=== PATIENT | male | born 1980 | race Caucasian/White ===

== ENCOUNTER 2022-07-19 01:44 | Emergency (ER) | payer MEDICAID, SELFPAY ==
[2022-07-19 01:46] VITALS: BP 125/75; PULSE 106; RESP 22; TEMP 36.3; O2SAT 99; BMI 23.1
--- NOTE | 2022-07-19 02:08 | W.ED.GENADLT ---
HPI - General Adult General: Chief complaint: General Medical Stated complaint: HURTS TO PEE Time Seen by Provider: 07/19/22 01:51 Source: patient History of Present Illness: 42-year-old male evidently with no prior history of urinary problems presents with the inability to urinate. He has been able to go only small amounts of most of the day he says. He screams in pain when trying to urinate. He is holding his belly. He notes his pain is in the lower abdomen and across his back. He has no testicular or penile pain, blood in the urine, or discharge. Onset (ago): hour(s) Location: abdomen and pelvis Radiation: back Severity: severe Quality: burning, stabbing and aching Pain Consistency: constant Relieving factors: none Exacerbating factors: other (Urination) Associated symptoms: Reports diaphoresis; Deny chest pain, dyspnea, fevers/chills, rash or vomiting Review of Systems Const: Reports: diaphoresis; Denies: fever(s) Card: Denies: chest pain Resp: Denies: dyspnea GI: Reports: abdominal pain; Denies: vomiting : Reports: difficulty urinating, dysuria, difficulty starting urination and oliguria Musc: Reports: back pain Skin/Breast: Denies: rash Physical Exam HENMT: COMMON NORMALS: normocephalic and atraumatic HEAD & SCALP: normocephalic and atraumatic Eye: COMMON NORMALS: Equal, round and reactive pupils present and EOMs intact bilaterally PUPIL: Yes Equal, round and reactive pupils present Neck/C-Spine: GENERAL: Yes trachea midline Chest: CHEST: Yes Symmetrical chest wall rise Resp: COMMON NORMALS: normal respiratory effort, No use of accessory muscles and clear to auscultation bilaterally AUSCULTATION: clear to auscultation bilaterally Cardio: COMMON NORMALS: regular rhythm RATE: tachycardic RHYTHM: regular rhythm GI: INSPECTION: Yes normal to inspection PALPATION: Yes Tenderness to palpation present (GI) (Suprapubic) : BLADDER/KIDNEY EXAM: Yes CVA tenderness Back/Pelvis: GENERAL BACK: Yes CVA tenderness CVA tenderness: bilateral Extremity: COMMON NORMALS: no pedal edema Neuro: SHAGGY COMA SCALE: document GCS findings [place] coma scale eye opening: Spontaneous [place] coma scale verbal response: Orientated [place] coma scale motor response: Obey commands Shaggy coma scale total score: 15 SPEECH: speech normal Psych: COMMON NORMALS: cooperative MOOD & AFFECT: Yes expansive affect Skin: NARRATIVE SKIN EXAM: Multiple skin szymanski in the forearms Course Vital Signs: Vital signs: Vital Signs Temperature 97.3 F L 07/19/22 01:46 Pulse Rate 106 H 07/19/22 01:46 Respiratory Rate 22 H 07/19/22 01:46 Blood Pressure 125/75 07/19/22 01:46 Pulse Oximetry 99 07/19/22 01:46 Oxygen Delivery Me thod 07/19/22 01:46 MDM - General Adult Medical Decision Making Patient appears to have needle tracks to the arm suspicious for amphetamine abuse. This could be a reason for urinary retention. Bladder scan is performed at the bedside and shows greater than 999 mL. IV is started, pain medication given. A Cardona will be inserted for decompression. Immediate output of 1000 mL post Cardona insertion. Patient feels much better. Pain is controlled. He will need to go home with a leg bag, to follow-up with PCP or urology in 48 to 72 hours. Lab Data Laboratory Results Urine Color Yellow (Yellow) 07/19/22 02:05 Urine Appearance Clear (CLEAR) 07/19/22 02:05 Urine pH 6 (5-7) 07/19/22 02:05 Ur Specific [place] 1.010 (1.005-1.030) 07/19/22 02:05 Urine Protein Neg (Negative) 07/19/22 02:05 Urine Glucose (UA) Norm (Normal) 07/19/22 02:05 Urine Ketones Negative (Negative) 07/19/22 02:05 Urine Blood 3+ (Negative) H 07/19/22 02:05 Urine Nitrate Negative (Negative) 07/19/22 02:05 Urine Bilirubin Neg (Negative) 07/19/22 02:05 Urine Urobilinogen Neg mg/dL (Negative) 07/19/22 02:05 Ur Leukocyte Esterase 2+ (Negative) H 07/19/22 02:05 Urine RBC 40-50 /hpf (0-2) H 07/19/22 02:05 Urine WBC 5-10 /hpf (0-5) H 07/19/22 02:05 Ur Squamous Epith Cells 0-4 /hpf (0-5) H 07/19/22 02:05 Amorphous Sediment Not Reportable 07/19/22 02:05 Urine Bacteria Trace /hpf (NONE) 07/19/22 02:05 Urine Opiates Screen Negative ng/mL (Negative) 07/19/22 02:05 Ur Barbiturates Screen Negative ng/mL (Negative) 07/19/22 02:05 Ur Phencyclidine Scrn Negative ng/mL (Negative) 07/19/22 02:05 Ur Amphetamines Screen Positive ng/mL (Negative) H 07/19/22 02:05 U Benzodiazepines Scrn Negative ng/mL (Negative) 07/19/22 02:05 Urine Cocaine Screen Negative ng/mL (Negative) 07/19/22 02:05 U Marijuana (THC) Screen Negative ng/mL (Negative) 07/19/22 02:05 Discharge Plan Discharge Patient Disposition: Home Clinical Impression: Acute urinary retention Condition: Stable Prescriptions: New Flomax 0.4 mg capsule 0.4 mg PO DAILY Qty: 30 0RF Discharge Orders: Discharge ED (Routine); Ordered 07/19/22 Ordered By: Castro Burrell Referrals: Kelly Silverman MD [Primary Care Provider] - 1-3 days Discharge Diet: Usual diet Discharge Activity: Increase activity as tolerated Patient Instructions: Urinary Retention in Men (ED), Cardona Catheter Placement and Care (ED) Activity Restrictions/Additional Instructions: See your doctor in 48 to 72 hours for catheter removal. Medication as directed, which should help your bladder release urine. Return for fever greater than 100, worsening pain, other concerning symptoms. Coding Level of Care Code ED Offshore Wind Turbine Technician for Jarocho Orlando
[2022-07-19] MEDS: HYDROmorphone 1 mg/mL INJ 1 mL IVP (02:17)
[2022-07-19] MEDS: haloperidol inj 5 mg/mL INJ 1 mL IVP (02:17)
--- NOTE | 2022-07-19 02:20 | PC.NURSE ---
0205- bladder scan done per Dr. Burrell showing amount >999. Provider notified and will place anton catheter. 0208- 16 fr anton placed with immediate urine return . 950 ml of urine returned @ 0209. Anton clamped and provider notified. WIll unclamp in 1 hour for full draining of bladder.
[2022-07-19 02:30] LABS: Add Urine Microscopic? YES; Bilirubin Urine Neg (Negative); Blood Urine 3+ (Negative); Glucose Urine UA Norm (Normal); Ketones Urine Negative (Negative); Leukocyte Esterase Urine 2+ (Negative); Nitrate Urine Negative (Negative); Protein Urine Neg (Negative); Urine Appearance Clear (CLEAR); Urine Color Yellow (Yellow); Urobilinogen Urine Neg (Negative); pH Urine 6 (5-7)
[2022-07-19 02:32] LABS: Add Urine Culture? Yes; Bacteria Urine TRACE /hpf; RBC Urine 40-50 /hpf (0-2); Squamous Epithelial Cell Urine 0-4 /hpf (0-5)
[2022-07-19 02:35] LABS: Amphetamines Screen Urine Positive (Negative); Barbiturates Screen Urine Negative (Negative); Benzodiazepines Screen Urine Negative (Negative); Cocaine Screen Urine Negative (Negative); Opiate Screen Urine Negative (Negative); PCP Screen Urine Negative (Negative); THC Screen Urine Negative (Negative)
== END 2022-07-19 03:01 | disposition home or self-care (01) ==
PROVIDERS: Emergency Provider Emergency Medicine; PCP Internal Medicine
DX: R33.9 Retention of urine, unspecified (principal)
CPT/HCPCS: 51702; 51798; 80306; 81001; 87077; 87086; 87186; 87491; 87591; 96374; 96375; 99284; J1170; J1630

== ENCOUNTER 2023-08-14 16:12 | Emergency (ER) | payer MEDICAID, SELFPAY ==
[2023-08-14 16:16] VITALS: BP 173/104; PULSE 104; RESP 16; TEMP 36.7; O2SAT 96
--- NOTE | 2023-08-14 16:18 | ECG_ITS ---
[facility] Test Date: 2023-08-14 Pat Name: Marty Ignacio Department: Room: Gender: Male Research Editor: : 1980 Requested By: Johan Almanza Order Number: [id number] Angel MD: Dudley Amor M.D. Measurements Intervals [place] Rate: 98 P: 63 IN: 183 QRS: 69 QRSD: 86 T: 66 QT: 323 QTc: 413 Interpretive Statements SINUS RHYTHM No previous ECG available for comparison Electronically Signed On 08-15-2023 22:53:54 CDT by Dudley Amor M.D. [id number]
--- NOTE | 2023-08-14 16:18 | W.ED.GENADLT ---
HPI - General Adult General: Chief complaint: Altered Mental Status Stated complaint: AMS Time Seen by Provider: 08/14/23 16:14 Source: patient Mode of arrival: ambulatory History of Present Illness: 43-year-old male presents emergency room with an episode of altered mental status. 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 EMS was called on arrival here he is awake and responsive he seems as if he is under the influence although he denies using any alcohol or drugs today. He states he has had similar episodes in the past and he has a history of seizures as well but he has not had any seizures for several years she is not on any medications for seizures. Onset (ago): minute(s) Associated symptoms: Deny dyspnea or headache(s) Review of Systems Const: Denies: chills Resp: Denies: dyspnea GI: Denies: abdominal pain : Denies: dysuria Musc: Denies: neck pain or back pain Skin/Breast: Denies: pruritus Neuro: Denies: headache(s) Physical Exam Const: COMMON NORMALS: no acute distress GENERAL APPEARANCE: cooperative and comfortable ORIENTATION/CONSCIOUSNESS: Yes awake, Yes oriented to person, Yes oriented to place and Yes oriented to time HENMT: COMMON NORMALS: normocephalic, atraumatic and hearing grossly normal bilaterally HEAD & SCALP: normocephalic and atraumatic Resp: COMMON NORMALS: normal respiratory effort, No retractions, No use of accessory muscles and clear to auscultation bilaterally AUSCULTATION: clear to auscultation bilaterally Cardio: COMMON NORMALS: regular rate, regular rhythm and No murmurs present (Cardio) RATE: regular rate RHYTHM: regular rhythm GI: COMMON NORMALS: Soft to palpation and No hepatosplenomegaly present AUSCULTATION: Yes normoactive bowel sounds PALPATION: Yes Soft to palpation, No Tenderness to palpation present (GI), No Guarding due to palpation present (GI) and Yes No hepatosplenomegaly present Extremity: COMMON NORMALS: normal to inspection, capillary refill normal, no clubbing, cyanosis or edema, no calf tenderness and no pedal edema Neuro: SENSORIUM/ORIENTATION: Yes oriented to person, Yes oriented to place and Yes oriented to time Skin: COMMON NORMALS: no rashes or lesions noted GENERAL SKIN EXAM: no rashes or lesions noted Course Vital Signs: Vital signs: Vital Signs Temperature 98.0 F 08/14/23 16:16 Pulse Rate 90 08/14/23 19:02 Respiratory Rate 14 08/14/23 19:02 Blood Pressure 138/72 08/14/23 19:02 Pulse Oximetry 96 08/14/23 19:02 Oxygen Delivery Me thod Room Air 08/14/23 16:50 MDM - General Adult Medical Decision Making Patient awake alert and interactive when he arrives here. Initially he does appear to be under the influence, he denies use of any drugs or alcohol. He states he has had these episodes in the past. UA positive for methamphetamines. Otherwise remainder of his UA is unremarkable. Patient increasingly jittery after arrival here suspect he has an chested or injected more methamphetamines since arriving. Discharged home suspect his episode today was related to the methamphetamine use patient admits he has had this in the past as well. Medical Records I reviewed the patient's medical records. Lab Data I reviewed the patient's lab results. 08/14/23 16:26 08/14/23 16:26 Laboratory Results WBC 10.33 10^3/uL (3.29-11.43) 08/14/23 16:26 RBC 4.63 10^6/uL (3.85-5.65) 08/14/23 16:26 Hgb 13.60 g/dL (11.27-16.99) 08/14/23 16:26 Hct 41.0 % (37-53) 08/14/23 16:26 MCV 88.6 fl (82-101) 08/14/23 16:26 MCH 29.4 pg (27-33) 08/14/23 16:26 MCHC 33.2 g/dL (30-55) 08/14/23 16:26 RDW 13.1 % (12.1-15.1) 08/14/23 16:26 Plt Count 227 10^3/cmm (157-399) 08/14/23 16:26 MPV 9.5 fL (7.4-10.4) 08/14/23 16:26 Neut % (Auto) 54.4 % 08/14/23 16:26 Lymph % (Auto) 34.9 % 08/14/23 16:26 [place] % (Auto) 8.4 % 08/14/23 16:26 Eos % (Auto) 1.3 % 08/14/23 16:26 Baso % (Auto) 0.8 % 08/14/23 16: Neut # (Auto) 5.62 10^3/uL (1.8-7.7) 08/14/23 16: Lymph # (Auto) 3.6 10^3/uL (0.8-4.8) 08/14/23 16:26 [place] # (Auto) 0.9 10^3/uL (0.2-0.9) 08/14/23 16:26 Eos # (Auto) 0.1 10^3/uL (0.0-0.8) 08/14/23 16: Baso # (Auto) 0.1 10^3/uL (0.0-0.1) 08/14/23 16:26 Nucleated RBC % (auto) 0 % 08/14/23 16: Nucleated RBCs # 0.0 /100WBC 08/14/23 16:26 Sodium 138 mmol/L (136-145) 08/14/23 16:26 Potassium 3.9 mmol/L (3.5-5.1) 08/14/23 16:26 Chloride 100 mmol/L (98-107) 08/14/23 16:26 Carbon Dioxide 26 mmol/L (22-29) 08/14/23 16:26 Anion Gap 15.9 (5-19) 08/14/23 16:26 BUN 18 mg/dL (6-20) 08/14/23 16:26 Creatinine 1.2 mg/dL (0.7-1.2) 08/14/23 16:26 GFR Calculation 66.1 mL/min (90-130) L 08/14/23 16:26 Glucose 87 mg/dL (65-115) 08/14/23 16:26 Calculated Osmolality 287 mOsm/kg (285-295) 08/14/23 16:26 Lactic Acid 1.0 mmol/L (0.5-2.2) 08/14/23 16:26 Calcium 9.0 mg/dL (8.5-10.5) 08/14/23 16:26 Total Bilirubin 0.6 mg/dL (0.15-1.2) 08/14/23 16:26 AST 80 U/L (0-40) H 08/14/23 16:26 ALT 85 U/L (0-41) H 08/14/23 16:26 Alkaline Phosphatase 72 U/L (40-130) 08/14/23 16:26 Total Protein 7.6 g/dL (6.6-8.7) 08/14/23 16:26 Albumin 4.5 g/dL (3.5-5.2) 08/14/23 16:26 Globulin 3.1 g/dL (1.3-4.6) 08/14/23 16:26 Urine Color Yellow (Yellow) 08/14/23 18:14 Urine Appearance Clear (CLEAR) 08/14/23 18:14 Urine pH 5 (5-7) 08/14/23 18:14 Ur Specific [place] 1.025 (1.005-1.030) 08/14/23 18:14 Urine Protein Trace (Negative) 08/14/23 18:14 Urine Glucose (UA) Norm (Normal) 08/14/23 18:14 Urine Ketones 1+ (Negative) H 08/14/23 18:14 Urine Blood 3+ (Negative) H 08/14/23 18:14 Urine Nitrate Negative (Negative) 08/14/23 18:14 Urine Bilirubin Neg (Negative) 08/14/23 18:14 Urine Urobilinogen Neg mg/dL (Negative) 08/14/23 18:14 Ur Leukocyte Esterase Negative (Negative) 08/14/23 18:14 Urine RBC 0-4 /hpf (0-2) H 08/14/23 18:14 Urine WBC None /hpf (0-5) 08/14/23 18:14 Ur Squamous Epith Cells 0-4 /hpf (0-5) H 08/14/23 18:14 Amorphous Sediment Not Reportable 08/14/23 18:14 Urine Bacteria None /hpf (NONE) 08/14/23 18:14 Urine Mucus 2+ /hpf 08/14/23 18:14 Urine Opiates Screen Negative ng/mL (Negative) 08/14/23 18:14 Ur Barbiturates Screen Negative ng/mL (Negative) 08/14/23 18:14 Ur Phencyclidine Scrn Negative ng/mL (Negative) 08/14/23 18:14 Ur Amphetamines Screen Positive ng/mL (Negative) H 08/14/23 18:14 U Benzodiazepines Scrn Negative ng/mL (Negative) 08/14/23 18:14 Urine Cocaine Screen Negative ng/mL (Negative) 08/14/23 18:14 U Marijuana (THC) Screen Negative ng/mL (Negative) 08/14/23 18:14 Ethyl Alcohol < 10 mg/dL (0-10) 08/14/23 16:26 No radiology studies performed this visit Discharge Plan Discharge Patient Disposition: Home Clinical Impression: Syncope and collapse Condition: Stable Prescriptions: No Action Flomax 0.4 mg capsule 0.4 mg PO DAILY Qty: 30 0RF Discharge Orders: Discharge ED (Routine); Ordered 08/14/23 Ordered By: Johan Rivera Referrals: Kelly Silverman MD [Primary Care Provider] - Discharge Diet: Usual diet Discharge Activity: Increase activity as tolerated Patient Instructions: Opioid Safety, Pain Management Activity Restrictions/Additional Instructions: Follow-up with your primary care doctor as needed. Coding Level of Care Code ED Correctional Treatment Specialist for Jarocho Orlando
[2023-08-14 16:41] LABS: Basophils # 0.1 10^3/uL (0.0-0.1); Basophils % 0.8 %; Eosinophils # 0.1 10^3/uL (0.0-0.8); Eosinophils % 1.3 %; Lymphocytes # 3.6 10^3/uL (0.8-4.8); Lymphocytes % 34.9 %; Mean Corpuscular HGB Conc 33.2 g/dL (30-55); Mean Corpuscular Hemoglobin 29.4 pg (27-33); Mean Corpuscular Volume 88.6 fl (82-101); Mean Platelet Volume 9.5 fL (7.4-10.4); Monocytes # 0.9 10^3/uL (0.2-0.9); Monocytes % 8.4 %; Neutrophils # 5.62 10^3/uL (1.8-7.7); Neutrophils % 54.4 %; Nucleated Red Blood Cells % 0 %; Platelet Count 227 10^3/cmm (157-399); Red Blood Count 4.63 10^6/uL (3.85-5.65); Red Cell Distribution Width 13.1 % (12.1-15.1); White Blood Count 10.33 10^3/uL (3.29-11.43)
[2023-08-14 16:48] VITALS: BP 128/80; PULSE 105; RESP 15; O2SAT 95
[2023-08-14 16:50] VITALS: BP 132/88; PULSE 101; RESP 17; O2SAT 98; O2SAT 99
[2023-08-14 16:54] LABS: Alanine Aminotransferase 85 U/L (0-41); Albumin Level 4.5 g/dL (3.5-5.2); Alkaline Phosphatase 72 U/L (40-130); Anion Gap 15.9 (5-19); Aspartate Amino Transferase 80 U/L (0-40); Blood Urea Nitrogen 18 mg/dL (6-20); Carbon Dioxide 26 mmol/L (22-29); Chloride 100 mmol/L (98-107); Creatinine Clr Calc Pharmacy 90.4871; Globulin 3.1 g/dL (1.3-4.6); Glomerular Filtration Rate 66.1 mL/min (90-130); Glucose 87 mg/dL (65-115); Osmolality Calculated 287 mOsm/kg (285-295); Potassium 3.9 mmol/L (3.5-5.1); Sodium 138 mmol/L (136-145); Total Bilirubin 0.6 mg/dL (0.15-1.2); Total Protein 7.6 g/dL (6.6-8.7)
[2023-08-14 17:02] LABS: Alcohol Level < 10 mg/dL (0-10)
[2023-08-14] MEDS: sodium chloride 0.9% 1,000 ML 999 ML IV (17:02)
[2023-08-14 18:10] VITALS: BP 134/79; PULSE 90; RESP 14; O2SAT 99
[2023-08-14 18:39] LABS: Amphetamines Screen Urine Positive (Negative); Barbiturates Screen Urine Negative (Negative); Benzodiazepines Screen Urine Negative (Negative); Cocaine Screen Urine Negative (Negative); Opiate Screen Urine Negative (Negative); PCP Screen Urine Negative (Negative); THC Screen Urine Negative (Negative)
[2023-08-14 19:00] VITALS: BP 138/72; PULSE 90; RESP 14; O2SAT 96
[2023-08-14 19:02] VITALS: BP 138/72; PULSE 90; RESP 14; O2SAT 96
[2023-08-14 19:03] LABS: Glucose Urine UA Norm (Normal); Ketones Urine 1+ (Negative); Protein Urine Trace (Negative); Specific Gravity, Urine 1.025 (1.005-1.030); Urine Appearance Clear (CLEAR); Urine Color Yellow (Yellow); pH Urine 5 (5-7)
[2023-08-14 19:04] LABS: Add Urine Culture? No; Add Urine Microscopic? YES; Bilirubin Urine Neg (Negative); Blood Urine 3+ (Negative); Leukocyte Esterase Urine Negative (Negative); Mucus Urine 2+ /hpf; Nitrate Urine Negative (Negative); RBC Urine 0-4 /hpf (0-2); Squamous Epithelial Cell Urine 0-4 /hpf (0-5); Urobilinogen Urine Neg (Negative)
== END 2023-08-14 19:03 | disposition home or self-care (01) ==
PROVIDERS: Emergency Provider Family Medicine; PCP Internal Medicine
DX: R55 Syncope and collapse (principal)
CPT/HCPCS: 36415; 80053; 80306; 80307; 81001; 83605; 85025; 93005; 96360; 99285; J7030

== ENCOUNTER 2024-02-24 06:48 | Emergency (ER) | payer MEDICAID, SELFPAY ==
[2024-02-24 06:52] VITALS: BP 140/83; PULSE 124; RESP 14; TEMP 36.8; O2SAT 99; BMI 26.4
--- NOTE | 2024-02-24 06:52 | XR_ITS ---
WS: [id number] Exam: XR chest 1V portable [id number] Date/Time of Exam: 02/24/2024 6:52 AM Reason For Exam: chest pain Comparison 07/26/2013. Lungs are clear. Normal cardiomediastinal silhouette and regional bony elements. No pleural effusions . Several scattered calcified granulomas. IMPRESSION: 1. Negative chest. No change.
--- NOTE | 2024-02-24 06:53 | ECG_ITS ---
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 Measurements Intervals [place] Rate: 92 P: 50 [place]: 175 QRS: 58 QRSD: 87 T: 52 QT: 340 QTc: 421 Interpretive Statements SINUS RHYTHM Compared to ECG 08/14/2023 16:18:34 No significant changes Electronically Signed On 02-24-2024 11:47:22 CDT by Dudley Amor M.D. [email or web address].[employer]/store/NU/[id number] f
--- NOTE | 2024-02-24 06:54 | ED_ITS ---
HPI - Chest Pain 2 General: Chief Complaint: Chest Pain Stated Complaint: chest pain Time Seen by Provider: 02/24/24 06:51 Source: patient Mode of arrival: ambulatory History of Present Illness: 43-year-old male presents with complaint of chest pain and lightheadedness began around 530 this morning. He also noted his blood pressure has been elevated. He is awake and alert answers questions he previously was on hydrochlorothiazide for his blood pressure but stopped it. No fever sweats or chills no dysuria urgency or frequency. MD complaint: chest pain Onset (ago): hour(s) Timing of current episode: episodic Onset: during rest Quality: tightness and heaviness Associated symptoms: Deny abdominal pain, dyspnea or fever(s) Review of Systems 2 Const: Denies: fever(s) or chills Card: Denies: chest pain Resp: Denies: dyspnea GI: Denies: abdominal pain : Denies: dysuria, urinary frequency or urinary urgency Musc: Denies: neck pain or back pain Skin/Breast: Denies: rash Physical Exam 2 Const: COMMON NORMALS: no acute distress GENERAL APPEARANCE: cooperative and comfortable ORIENTATION/CONSCIOUSNESS: Yes awake, Yes oriented to person, Yes oriented to place and Yes oriented to time HENMT: COMMON NORMALS: normocephalic, atraumatic and hearing grossly normal bilaterally HEAD & SCALP: normocephalic and atraumatic Resp: COMMON NORMALS: normal respiratory effort, No retractions, No use of accessory muscles and clear to auscultation bilaterally AUSCULTATION: clear to auscultation bilaterally Cardio: COMMON NORMALS: regular rate, regular rhythm and No murmurs present (Cardio) RATE: regular rate RHYTHM: regular rhythm GI: COMMON NORMALS: Soft to palpation and No hepatosplenomegaly present A USCULTATION: Yes normoactive bowel sounds PALPATION: Yes Soft to palpation, No Tenderness to palpation present (GI), No Guarding due to palpation present (GI) and Yes No hepatosplenomegaly present Extremity: COMMON NORMALS: normal to inspection, capillary refill normal, no clubbing, cyanosis or edema, no calf tenderness and no pedal edema Neuro: SENSORIUM/ORIENTATION: Yes oriented to person, Yes oriented to place and Yes oriented to time Skin: COMMON NORMALS: no rashes or lesions noted GENERAL SKIN EXAM: no rashes or lesions noted Course 2 Vital Signs: Vital signs: Vital Signs Temperature 98.2 F 02/24/24 10:11 Pulse Rate 62 02/24/24 10:11 Respiratory Rate 14 02/24/24 10:11 Blood Pressure 107/68 02/24/24 10:11 Pulse Oximetry 96 02/24/24 10:11 Oxygen Delivery Me thod Room Air 02/24/24 08:46 MDM - Chest Pain Medical Decision Making Labs and imaging reviewed EKG does not show any acute ST changes no ST elevation, normal sinus rhythm with a rate in the 90s. With normal NE and QT intervals on the first EKG. Second EKG showed sinus bradycardia but otherwise unremarkable no acute ST changes. . Troponins trending normal patient has had no further symptoms. Patient has been using a lot of NSAIDs with ibuprofen and Aleve. He avoids Tylenol because he has a history of hepatitis C. Asked him to cut back on the use of the NSAIDs. Start omeprazole 20 mg twice a day for 10 days then once a day. Increase fluid intake follow-up with outpatient graded exercise stress test. Medical Records I reviewed the patient's medical records. Lab Data I reviewed the patient's lab results. 02/24/24 07:16 02/24/24 07:16 Laboratory Results WBC 5.84 10^3/uL (3.29-11.43) 02/24/24 07:16 RBC 5.27 10^6/uL (3.85-5.65) 02/24/24 07:16 Hgb 16.10 g/dL (11.27-16.99) 02/24/24 07:16 Hct 47.5 % (37-53) 02/24/24 07:16 MCV 90.1 fl (82-101) 02/24/24 07:16 MCH 30.6 pg (27-33) 02/24/24 07:16 MCHC 33.9 g/dL (30-55) 02/24/24 07:16 RDW 13.2 % (12.1-15.1) 02/24/24 07:16 Plt Count 168 10^3/cmm (157-399) 02/24/24 07:16 MPV 10.6 fL (7.4-10.4) H 02/24/24 07:16 Neut % (Auto) 57.4 % 02/24/24 07:16 Lymph % (Auto) 29.8 % 02/24/24 07:16 [place] % (Auto) 8.9 % 02/24/24 07:16 Eos % (Auto) 2.7 % 02/24/24 07:16 Baso % (Auto) 0.9 % 02/24/24 07:16 Neut # (Auto) 3.35 10^3/uL (1.8-7.7) 02/24/24 07:16 Lymph # (Auto) 1.7 10^3/uL (0.8-4.8) 02/24/24 07:16 [place] # (Auto) 0.5 10^3/uL (0.2-0.9) 02/24/24 07:16 Eos # (Auto) 0.2 10^3/uL (0.0-0.8) 02/24/24 07:16 Baso # (Auto) 0.1 10^3/uL (0.0-0.1) 02/24/24 07:16 Nucleated RBC % (auto) 0 % 02/24/24 07:16 Nucleated RBCs # 0.0 /100WBC 02/24/24 07:16 Sodium 138 mmol/L (136-145) 02/24/24 07:16 Potassium 4.1 mmol/L (3.5-5.1) 02/24/24 07:16 Chloride 104 mmol/L (98-107) 02/24/24 07:16 Carbon Dioxide 25 mmol/L (22-29) 02/24/24 07:16 Anion Gap 13.1 (5-19) 02/24/24 07:16 BUN 12 mg/dL (6-20) 02/24/24 07:16 Creatinine 1.0 mg/dL (0.7-1.2) 02/24/24 07:16 GFR Calculation 81.6 mL/min (90-130) L 02/24/24 07:16 Glucose 142 mg/dL (65-115) H 02/24/24 07:16 POC Glucose 89 mg/dL (70-110) 02/24/24 09:58 Calculated Osmolality 288 mOsm/kg (285-295) 02/24/24 07:16 Calcium 9.1 mg/dL (8.5-10.5) 02/24/24 07:16 Total Bilirubin 0.5 mg/dL (0.15-1.2) 02/24/24 07:16 AST 88 U/L (0-40) H 02/24/24 07:16 ALT 137 U/L (0-41) H 02/24/24 07:16 Alkaline Phosphatase 69 U/L (40-130) 02/24/24 07:16 Troponin T Baseline 9 ng/L (0-15) 02/24/24 07:16 Troponin T 120 Minute 7.63 ng/L (0-15) 02/24/24 09:21 Delta Troponin T -1.37 ABS# (0-10) L 02/24/24 09:21 NT-Pro-B Natriuret Pep < 36 pg/mL (0-125) 02/24/24 07:16 Total Protein 7.2 g/dL (6.6-8.7) 02/24/24 07:16 Albumin 4.4 g/dL (3.5-5.2) 02/24/24 07:16 Globulin 2.8 g/dL (1.3-4.6) 02/24/24 07:16 Urine Opiates Screen Negative ng/mL (Negative) 02/24/24 08:04 Ur Barbiturates Screen Negative ng/mL (Negative) 02/24/24 08:04 Ur Phencyclidine Scrn Negative ng/mL (Negative) 02/24/24 08:04 Ur Amphetamines Screen Negative ng/mL (Negative) 02/24/24 08:04 U Benzodiazepines Scrn Negative ng/mL (Negative) 02/24/24 08:04 Urine Cocaine Screen Negative ng/mL (Negative) 02/24/24 08:04 U Marijuana (THC) Screen Negative ng/mL (Negative) 02/24/24 08:04 All radiology interpretation(s) finalized by discharge Discharge Plan Discharge Patient Disposition: Home Clinical Impression: Atypical chest pain Condition: Stable Prescriptions: New omeprazole 20 mg capsule,delayed release(DR/EC) 20 mg PO DAILY 42 Days Qty: 42 0RF Discontinued ibuprofen 200 mg Capsule 600 mg PO Q6H PRN (Reason: Pain) naproxen sodium [Aleve] 220 mg Capsule 220 mg PO BID PRN (Reason: Pain) Discharge Orders: Discharge ED (Routine); Ordered 02/24/24 Ordered By: Johan Rivera Referrals: Kelly Silverman MD [Primary Care Provider] - Discharge Diet: Usual diet Discharge Activity: Limit activity as instructed Patient Instructions: Opioid Safety, Pain Management Activity Restrictions/Additional Instructions: Thank you for choosing [facility] for your healthcare needs today. Please realize this is an emergency room and that we are providing you with a medical screening exam and this may not be complete and all inclusive of all the testing and or work up that you may need to determine your ailment or severity of your illness. It is very important that you follow up as instructed or that you return to the Emergency Department should you have concerns or if your condition changes or worsens in any way. You are seen today with complaint of chest pain cardiac enzymes and EKG did not show any acute changes. Recommend avoiding anti-inflammatories such as Aleve and ibuprofen. Start Prilosec 20 mg once daily [id number]. Case management will set up a stress test for you. Coding Level of Care Code ED Regulatory Product Manager for Jarocho Orlando
[2024-02-24] MEDS: aspirin 81 mg Chew Tablet 324 MG PO (07:07)
[2024-02-24 07:23] VITALS: BP 140/83; PULSE 72; O2SAT 96
[2024-02-24 07:31] LABS: Basophils # 0.1 10^3/uL (0.0-0.1); Basophils % 0.9 %; Eosinophils # 0.2 10^3/uL (0.0-0.8); Eosinophils % 2.7 %; Hematocrit 47.5 % (37-53); Lymphocytes # 1.7 10^3/uL (0.8-4.8); Lymphocytes % 29.8 %; Mean Corpuscular HGB Conc 33.9 g/dL (30-55); Mean Corpuscular Hemoglobin 30.6 pg (27-33); Mean Corpuscular Volume 90.1 fl (82-101); Mean Platelet Volume 10.6 fL (7.4-10.4); Monocytes # 0.5 10^3/uL (0.2-0.9); Monocytes % 8.9 %; Neutrophils # 3.35 10^3/uL (1.8-7.7); Neutrophils % 57.4 %; Nucleated Red Blood Cells % 0 %; Platelet Count 168 10^3/cmm (157-399); Red Blood Count 5.27 10^6/uL (3.85-5.65); Red Cell Distribution Width 13.2 % (12.1-15.1); White Blood Count 5.84 10^3/uL (3.29-11.43)
[2024-02-24 07:42] LABS: Troponin(5th) Baseline 9 ng/L (0-15)
[2024-02-24 07:49] LABS: Alanine Aminotransferase 137 U/L (0-41); Albumin Level 4.4 g/dL (3.5-5.2); Alkaline Phosphatase 69 U/L (40-130); Anion Gap 13.1 (5-19); Aspartate Amino Transferase 88 U/L (0-40); Blood Urea Nitrogen 12 mg/dL (6-20); Calcium 9.1 mg/dL (8.5-10.5); Carbon Dioxide 25 mmol/L (22-29); Chloride 104 mmol/L (98-107); Creatinine Clr Calc Pharmacy 113.4728; Globulin 2.8 g/dL (1.3-4.6); Glomerular Filtration Rate 81.6 mL/min (90-130); Glucose 142 mg/dL (65-115); NT Pro B Type Natriuretic Pept < 36 pg/mL (0-125); Osmolality Calculated 288 mOsm/kg (285-295); Potassium 4.1 mmol/L (3.5-5.1); Sodium 138 mmol/L (136-145); Total Bilirubin 0.5 mg/dL (0.15-1.2); Total Protein 7.2 g/dL (6.6-8.7)
[2024-02-24 08:36] LABS: Amphetamines Screen Urine Negative (Negative); Barbiturates Screen Urine Negative (Negative); Benzodiazepines Screen Urine Negative (Negative); Cocaine Screen Urine Negative (Negative); Opiate Screen Urine Negative (Negative); PCP Screen Urine Negative (Negative); THC Screen Urine Negative (Negative)
[2024-02-24 08:46] VITALS: BP 107/68; PULSE 77; O2SAT 96
--- NOTE | 2024-02-24 08:53 | ECG_ITS ---
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 Measurements Intervals [place] Rate: 59 P: 35 [place]: 176 QRS: 56 QRSD: 90 T: 52 QT: 386 QTc: 384 Interpretive Statements SINUS BRADYCARDIA Compared to ECG 02/24/2024 06:53:33 Sinus rhythm no longer present Electronically Signed On 02-24-2024 11:48:26 CDT by Dudley Amor M.D. [email or web address] at stone [email or web address] hardin memorial hospitalBox/store/OM/[id number]
[2024-02-24 09:51] LABS: Troponin 5 2HR 7.63 ng/L (0-15)
[2024-02-24 09:53] VITALS: BP 107/68; PULSE 74; O2SAT 95
[2024-02-24 09:55] VITALS: BP 107/68; PULSE 62; O2SAT 96
[2024-02-24 09:56] LABS: Troponin 5 2HR Delta -1.37 ABS# (0-10)
[2024-02-24 10:01] LABS: Glucose Point of Care 89 mg/dL (70-110)
[2024-02-24 10:11] VITALS: BP 107/68; PULSE 62; RESP 14; TEMP 36.8; O2SAT 96
--- NOTE | 2024-02-28 08:01 | DCPLANNER ---
outpatient order sent to Centralized scheduling
== END 2024-02-24 10:14 | disposition home or self-care (01) ==
PROVIDERS: Emergency Provider Family Medicine; PCP Internal Medicine
DX: R07.89 Other chest pain (principal)
CPT/HCPCS: 36416; 71045; 80053; 80306; 82962; 83880; 84484; 85025; 93005; 99285

== ENCOUNTER 2024-03-13 17:37 | Emergency (ER) | payer MEDICAID, SELFPAY ==
[2024-03-13 17:42] VITALS: BP 141/98; PULSE 108; RESP 18; TEMP 36.7; O2SAT 94; BMI 28.6
--- NOTE | 2024-03-13 17:49 | ED_ITS ---
Documented by User: Johan Rivera DO 03/14/24 06:14 HPI - Skin/Abscess/Foreign Bdy General: Chief complaint: Skin/Abscess/Foreign Body Stated complaint: hives Time Seen by Provider: 03/13/24 17:46 Source: patient Mode of arrival: ambulatory History of Present Illness: 43-year-old male presents emergency room complaining of itching swelling of the skin prickly of his arms also some swelling of his lower lip. He states began overnight he does not recall anything that was new or different that seem to precipitate it. He was seen in urgent care this morning and started on cetirizine and prednisone taper. He states that seem to gotten worse throughout the day he has not had any difficulty breathing or wheezing no vomiting or diarrhea no previous episodes like this. Onset (ago): hour(s) Location: face Severity: mild Relieving factors: none Exacerbating factors: none Associated symptoms: Deny arthralgias, chills, cough, fever(s), itching, myalgias, nausea, rigidity, short of breath or vomiting Treatments prior to arrival: other (Seen earlier today given antihistamines and oral steroid taper) Review of Systems Const: Denies: fever(s) or chills Card: Denies: chest pain Resp: Denies: dyspnea GI: Denies: nausea or vomiting : Denies: dysuria, urinary frequency or urinary urgency Musc: Denies: neck pain or back pain Skin/Breast: Denies: rash Physical Exam Const: GENERAL APPEARANCE: cooperative and comfortable ORIENTATION/CONSCIOUSNESS: Yes awake HENMT: COMMON NORMALS: atraumatic and hearing grossly normal bilaterally HEAD & SCALP: atraumatic Resp: COMMON NORMALS: normal respiratory effort, No retractions, No use of accessory muscles and clear to auscultation bilaterally AUSCULTATION: clear to auscultation bilaterally Cardio: COMMON NORMALS: regular rate, regular rhythm and No murmurs present (Cardio) RATE: regular rate RHYTHM: regular rhythm GI: COMMON NORMALS: Soft to palpation and No hepatosplenomegaly present AUSCULTATION: Yes normoactive bowel sounds PALPATION: Yes Soft to palpation, No Tenderness to palpation present (GI), No Guarding due to palpation present (GI) and Yes No hepatosplenomegaly present Extremity: COMMON NORMALS: normal to inspection, capillary refill normal, no clubbing, cyanosis or edema, no calf tenderness and no pedal edema Skin: OTHER: Excoriations on the arms bilaterally. There is significant swelling of the lower lip no posterior pharyngeal edema or tongue swelling. No stridor on exam Course Vital Signs: Vital signs: Vital Signs Temperature 98.0 F 03/13/24 17:42 Pulse Rate 108 H 03/13/24 17:42 Respiratory Rate 18 03/13/24 20:03 Blood Pressure 115/83 03/13/24 20:03 Pulse Oximetry 90 03/13/24 20:03 Oxygen Delivery Me thod Room Air 03/13/24 17:42 MDM - Skin/Abscess/Foreign Bdy Medicial Decision Making Care signed out to Dr. Cervantes at change of shift. See final notes for diagnosis and disposition. Discharge Plan Discharge Patient Disposition: Home Clinical Impression: Allergic reaction Condition: Stable Prescriptions: New dexamethasone 6 mg tablet 6 mg PO DAILY 5 Days Qty: 5 0RF No Action omeprazole 20 mg capsule,delayed release(DR/EC) 20 mg PO DAILY 42 Days Qty: 42 0RF Discharge Orders: Discharge ED (Routine); Ordered 03/13/24 Ordered By: Mayi Cervantes Referrals: Kelyl Silverman MD [Primary Care Provider] - 4-7 days () Patient Instructions: General Allergic Reaction (ED) Activity Restrictions/Additional Instructions: Thank you for choosing [facility] for your healthcare needs today. Please realize this is an emergency room and that we are providing you with a medical screening exam and this may not be complete and all inclusive of all the testing and or work up that you may need to determine your ailment or severity of your illness. You have been screened and evaluated and felt safe for discharge. Health conditions do change or evolve sometimes and as such it is important that you follow up with your Primary Doctor to be re checked, 3-5 days is a general good time frame for follow up. 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 Cervantes at change of shift. See final notes for diagnosis and disposition. Patient improving some home on steroids Assessment and plan: Allergic reaction - Discharged home - Discussed plan with patient. Answered any questions. - Evaluation and treatment of this problem were appropriate in the emergency setting. No radiology studies performed this visit Discharge Plan Discharge Patient Disposition: Home Clinical Impression: Allergic reaction Condition: Stable Prescriptions: New dexamethasone 6 mg tablet 6 mg PO DAILY 5 Days Qty: 5 0RF No Action omeprazole 20 mg capsule,delayed release(DR/EC) 20 mg PO DAILY 42 Days Qty: 42 0RF Discharge Orders: Discharge ED (Routine); Ordered 03/13/24 Ordered By: Mayi Cervantes Referrals: Kelly Silverman MD [Primary Care Provider] - 4-7 days () Patient Instructions: General Allergic Reaction (ED) Activity Restrictions/Additional Instructions: Thank you for choosing [facility] for your healthcare needs today. Please realize this is an emergency room and that we are providing you with a medical screening exam and this may not be complete and all inclusive of all the testing and or work up that you may need to determine your ailment or severity of your illness. You have been screened and evaluated and felt safe for discharge. Health conditions do change or evolve sometimes and as such it is important that you follow up with your Primary Doctor to be re checked, 3-5 days is a general good time frame for follow up. You are always welcome to return to the ED for re assessment if your symptoms are worsening or you have new concerns Coding Level of Care Code ED [employer] Process[employer] for Jarocho Orlando
[2024-03-13] MEDS: diphenhydrAMINE 50 mg/mL SDV 1mL IVP (18:16)
[2024-03-13] MEDS: methylPREDNISolone sod succ 125 mg/2 mL INJ IVP (18:16)
[2024-03-13 20:03] VITALS: BP 115/83; RESP 18; O2SAT 90
== END 2024-03-13 20:05 | disposition home or self-care (01) ==
PROVIDERS: Emergency Provider Emergency Medicine; PCP Internal Medicine
DX: T78.40XA Allergy, unspecified, initial encounter (principal); X58.XXXA Exposure to other specified factors, initial encounter
CPT/HCPCS: 96374; 96375; 99284; J1200; J2919

== ENCOUNTER → 2024-05-23 09:18 | Outpatient (BNVA) | payer MEDICAID, SELFPAY | PROVIDERS: PCP Internal Medicine | DX: M25.512 Pain in left shoulder (principal) | CPT/HCPCS: 73030 ==

== ENCOUNTER 2025-09-16 10:34 | Emergency (ER) | payer MEDICAID, SELFPAY ==
--- NOTE | 2025-09-16 10:34 | XRR_ITS ---
PROCEDURE INFORMATION: Exam: XR Chest Exam date and time: 09/16/2025 10:51 AM Age: 45 years old Clinical indication: Cough and dyspnea; Additional info: Dyspnea/cough TECHNIQUE: Imaging protocol: Radiologic exam of the chest. Views: 1 view. COMPARISON: CR XR chest 1V portable [id number] 02/24/2024 7:19 AM FINDINGS: Lungs: Calcified granulomas in the right upper lung zone. There is no evidence of focal pulmonary consolidation. Pleural spaces: Unremarkable. No pleural effusion. No pneumothorax. Heart/Mediastinum: Unremarkable. No cardiomegaly. Bones/joints: Mild degenerative disease of bilateral acromioclavicular joints. XR/XR chest 1V portable [id number] IMPRESSION: No acute cardiopulmonary process.
[2025-09-16 10:35] VITALS: BP 142/82; PULSE 106; RESP 16; TEMP 36.3; O2SAT 100; BMI 23.7
--- NOTE | 2025-09-16 10:40 | ECG_ITS ---
[facility] Test Date: 2025-09-16 Pat Name: Marty Ignacio Department: Room: Gender: Male Protective Service Specialist: : 1980 Requested By: Johan Almanza Order Number: [id number] Angel MD: Handy Moran M.D. Measurements Intervals [place] Rate: 107 P: 40 AL: 132 QRS: 64 QRSD: 90 T: 54 QT: 330 QTc: 440 Interpretive Statements SINUS TACHYCARDIA ABNORMAL RHYTHM ECG Compared to ECG 02/24/2024 09:17:52 Sinus bradycardia no longer present Electronically Signed On 09-16-2025 20:10:49 [employer]OGY MAKER by Handy Moran M.D. [email or web address]
--- NOTE | 2025-09-16 10:50 | ED_ITS ---
HPI - Dizziness 2 General: Chief Complaint: Dizziness Stated Complaint: dizzy Time Seen by Provider: 09/16/25 10:34 History of Present Illness: HPI Narrative: 45-year-old male presents emergency room complaining of lightheadedness dizziness. He fell a physical fall after he stood up while he was making a bed. Otherwise his symptoms are nonreproducible if he moves his head does not increase his symptoms. He was at [place] he denies any vomiting or diarrhea recently. No fever sweats or chills no cough shortness of breath denies chest pain or abdominal pain at this time. Associated symptoms: Denies chest pain or chills Related Data Previous Rx's ?Medication ?Instructions ?Recorded ibuprofen 800 mg tablet 800 mg PO Q8H PRN pain #30 t abs 05/23/24 Allergies Allergy/AdvReac Type Severity Reaction Status Date / Time doxycycline Allergy ALGY-Hives Verified 09/16/25 10:46 Review of Systems 2 Const: Denies: fever(s) or chills Card: Denies: chest pain Resp: Denies: dyspnea GI: Denies: abdominal pain : Denies: dysuria, urinary frequency or urinary urgency Musc: Denies: neck pain or back pain Skin/Breast: Denies: rash Neuro: Reports: dizziness PFSH ED 2 PFSH: Social History Smoking and tobacco/nicotine status: unknown if used tobacco/nicotine Physical Exam 2 Const: COMMON NORMALS: no acute distress GENERAL APPEARANCE: cooperative and comfortable ORIENTATION/CONSCIOUSNESS: Yes awake, Yes oriented to person, Yes oriented to place and Yes oriented to time HENMT: COMMON NORMALS: normocephalic, atraumatic and hearing grossly normal bilaterally HEAD & SCALP: normocephalic and atraumatic Resp: COMMON NORMALS: normal respiratory effort, No retractions, No use of accessory muscles and clear to auscultation bilaterally AUSCULTATION: clear to auscultation bilaterally Cardio: COMMON NORMALS: regular rate, regular rhythm and No murmurs present (Cardio) RATE: regular rate RHYTHM: regular rhythm GI: COMMON NORMALS: Soft to palpation and No hepatosplenomegaly present A USCULTATION: Yes normoactive bowel sounds PALPATION: Yes Soft to palpation, No Tenderness to palpation present (GI), No Guarding due to palpation present (GI) and Yes No hepatosplenomegaly present Extremity: COMMON NORMALS: normal to inspection, capillary refill normal, no clubbing, cyanosis or edema, no calf tenderness and no pedal edema Neuro: SENSORIUM/ORIENTATION: Yes oriented to person, Yes oriented to place and Yes oriented to time OTHER: NIH done when I first seen the patient is 0. Skin: COMMON NORMALS: no rashes or lesions noted GENERAL SKIN EXAM: no rashes or lesions noted Course 2 Vital Signs: Vital signs: Vital Signs Temperature 97.4 F L 09/16/25 10:35 Pulse Rate 95 09/16/25 12:26 Respiratory Rate 16 09/16/25 10:35 Blood Pressure 106/57 09/16/25 12:26 Pulse Oximetry 98 09/16/25 12:26 Oxygen Delivery Me thod Room Air 09/16/25 10:35 MDM - Dizziness Medical Decision Making Patient is mildly orthostatic. Remainder of his workup is negative is not having any further symptoms he declines IV fluids we will discharge him home encourage oral hydration follow-up with his primary care doctor. Lab Data I reviewed the patient's lab results. 09/16/25 10:58 09/16/25 10:58 Radiology Impressions Chest X-Ray 09/16/25 10:34 IMPRESSION: No acute cardiopulmonary process. Laboratory Results WBC 7.31 10^3/uL (3.29-11.43) 09/16/25 10:58 RBC 4.92 10^6/uL (3.85-5.65) 09/16/25 10:58 Hgb 14.50 g/dL (11.27-16.99) 09/16/25 10:58 Hct 43.7 % (37-53) 09/16/25 10:58 MCV 88.8 fl (82-101) 09/16/25 10:58 MCH 29.5 pg (27-33) 09/16/25 10:58 MCHC 33.2 g/dL (30-55) 09/16/25 10:58 RDW 14.5 % (12.1-15.1) 09/16/25 10:58 Plt Count 190 10^3/cmm (157-399) 09/16/25 10:58 MPV 10.1 fL (7.4-10.4) 09/16/25 10:58 Neut % (Auto) 66.8 % 09/16/25 10:58 Lymph % (Auto) 21.5 % 09/16/25 10:58 [place] % (Auto) 8.6 % 09/16/25 10:58 Eos % (Auto) 1.9 % 09/16/25 10:58 Baso % (Auto) 0.8 % 09/16/25 10:58 Neut # (Auto) 4.88 10^3/uL (1.8-7.7) 09/16/25 10:58 Lymph # (Auto) 1.6 10^3/uL (0.8-4.8) 09/16/25 10:58 [place] # (Auto) 0.6 10^3/uL (0.2-0.9) 09/16/25 10:58 Eos # (Auto) 0.1 10^3/uL (0.0-0.8) 09/16/25 10:58 Baso # (Auto) 0.1 10^3/uL (0.0-0.1) 09/16/25 10:58 Nucleated RBC % (auto) 0 % 09/16/25 10:58 Nucleated RBCs # 0.0 /100WBC 09/16/25 10:58 Sodium 138 mmol/L (136-145) 09/16/25 10:58 Potassium 4.3 mmol/L (3.5-5.1) 09/16/25 10:58 Chloride 104 mmol/L (98-107) 09/16/25 10:58 Carbon Dioxide 22 mmol/L (22-29) 09/16/25 10:58 Anion Gap 16.3 (5-19) 09/16/25 10:58 BUN 15 mg/dL (6-20) 09/16/25 10:58 Creatinine 0.6 mg/dL (0.7-1.2) L 09/16/25 10:58 GFR Calculation 145.7 mL/min (90-130) H 09/16/25 10:58 Glucose 119 mg/dL (65-115) H 09/16/25 10:58 Calculated Osmolality 288 mOsm/kg (285-295) 09/16/25 10:58 Calcium 9.2 mg/dL (8.5-10.5) 09/16/25 10:58 Total Bilirubin 0.4 mg/dL (0.15-1.2) 09/16/25 10:58 AST 137 U/L (0-40) H 09/16/25 10:58 ALT 169 U/L (0-41) H 09/16/25 10:58 Alkaline Phosphatase 130 U/L (40-130) 09/16/25 10:58 Troponin T Baseline < 6 ng/L (0-15) 09/16/25 10:58 Total Protein 7.4 g/dL (6.6-8.7) 09/16/25 10:58 Albumin 3.9 g/dL (3.5-5.2) 09/16/25 10:58 Globulin 3.5 g/dL (1.3-4.6) 09/16/25 10:58 Urine Color Yellow (Yellow) 09/16/25 10:48 Urine Appearance Cloudy (CLEAR) A 09/16/25 10:48 Urine pH 7.5 (5-7) 09/16/25 10:48 Ur Specific [place] 1.015 (1.005-1.030) 09/16/25 10:48 Urine Protein Negative (Negative) 09/16/25 10:48 Urine Glucose (UA) Negative (Normal) 09/16/25 10:48 Urine Ketones Negative (Negative) 09/16/25 10:48 Urine Blood Negative (Negative) 09/16/25 10:48 Urine Nitrate Negative (Negative) 09/16/25 10:48 Urine Bilirubin Negative (Negative) 09/16/25 10:48 Urine Urobilinogen 4.0 mg/dL (Negative) H 09/16/25 10:48 Ur Leukocyte Esterase Negative (Negative) 09/16/25 10:48 Urine RBC 0-2 /hpf (0-2) 09/16/25 10:48 Urine WBC 0-5 /hpf (0-5) 09/16/25 10:48 Ur Squamous Epith Cells 0-5 /hpf (0-5) 09/16/25 10:48 Amorphous Sediment Not Reportable 09/16/25 10:48 Urine Bacteria None seen /hpf (NONE) 09/16/25 10:48 Hyaline Casts 0-4 /lpf H 09/16/25 10:48 All radiology interpretation(s) finalized by discharge Discharge Plan Discharge Patient Disposition: Home Clinical Impression: Orthostatic hypotension Condition: Stable Prescriptions: No Action ibuprofen 800 mg tablet 800 mg PO Q8H PRN (Reason: pain) Qty: 30 0RF Discharge Orders: Discharge ED (Routine); Ordered 09/16/25 Ordered By: Johan Rivera Referrals: Kelly Silverman MD [Primary Care Provider, Internal Medicine] Discharge Diet: Usual diet Discharge Activity: Increase activity as tolerated Patient Instructions: Opioid Safety, Pain Management, Patient Portal & [place] Instructions Activity Restrictions/Additional Instructions: Thank you for choosing [facility] for your healthcare needs today. It is very important that you follow up as instructed or that you return to the Emergency Department should you have concerns or if your condition changes or worsens in any way. Emergency department visits are focused on emergent conditions, in some cases you may require further evaluation on an outpatient basis. You were seen in the emergency room after complaining of having an episode of lightheadedness after standing up. Your blood pressure drops a bit when you stand we offered you IV fluid which you declined encourage oral intake avoid exertional activities for the next day or 2 follow-up with your primary care doctor as needed (Please note that included in your discharge packet is information concerning opioid safety and pain management. This information is given to all patients were discharged from the ER regardless of their discharge diagnosis or the medicines they usually take or are prescribed.) Print Language: Armenian Coding Level of Care Code ED Tractor Engine Assembler for Jarocho Orlando
[2025-09-16 10:51] VITALS: BP 115/86; BP 123/83; BP 161/78; PULSE 101; PULSE 106; PULSE 112
[2025-09-16 10:54] LABS: Glucose Urine UA Negative (Normal); Nitrate Urine Negative (Negative); Specific Gravity, Urine 1.015 (1.005-1.030)
[2025-09-16 10:59] LABS: Add Urine Microscopic? YES
[2025-09-16 11:04] LABS: Hematocrit 43.7 % (37-53); Hemoglobin 14.50 g/dL (11.27-16.99); Mean Corpuscular HGB Conc 33.2 g/dL (30-55); Mean Corpuscular Hemoglobin 29.5 pg (27-33); Mean Corpuscular Volume 88.8 fl (82-101); Nucleated Red Blood Cells % 0 %; Platelet Count 190 10^3/cmm (157-399); Red Blood Count 4.92 10^6/uL (3.85-5.65); White Blood Count 7.31 10^3/uL (3.29-11.43)
[2025-09-16 11:26] LABS: Troponin(5th) Baseline < 6 ng/L (0-15)
[2025-09-16 11:30] LABS: Alanine Aminotransferase 169 U/L (0-41); Albumin Level 3.9 g/dL (3.5-5.2); Alkaline Phosphatase 130 U/L (40-130); Anion Gap 16.3 (5-19); Aspartate Amino Transferase 137 U/L (0-40); Blood Urea Nitrogen 15 mg/dL (6-20); Calcium 9.2 mg/dL (8.5-10.5); Carbon Dioxide 22 mmol/L (22-29); Chloride 104 mmol/L (98-107); Creatinine Clr Calc Pharmacy 177.2427; Globulin 3.5 g/dL (1.3-4.6); Glucose 119 mg/dL (65-115); Osmolality Calculated 288 mOsm/kg (285-295); Potassium 4.3 mmol/L (3.5-5.1); Sodium 138 mmol/L (136-145); Total Protein 7.4 g/dL (6.6-8.7)
--- NOTE | 2025-09-16 11:37 | PC.NURSE ---
pt refused Normal Saline, pt states 'i havent been dizzy just lightheaded. i think its from my medication, i dont think i need fluids.' this RN educated pt on the use of fluids and how it could be beneficial and pt still refused. Dr. Rivera notified.
[2025-09-16 11:41] VITALS: BP 130/81; PULSE 102; O2SAT 98
[2025-09-16 12:26] VITALS: BP 106/57; PULSE 95; O2SAT 98
== END 2025-09-16 12:26 | disposition home or self-care (01) ==
PROVIDERS: Emergency Provider Family Medicine; PCP Internal Medicine
DX: I95.1 Orthostatic hypotension (principal)
CPT/HCPCS: 71045; 80053; 81001; 84484; 85025; 93005; 99285